=== PATIENT | female | born 1950 | race African-American/Black ===

== ENCOUNTER 2017-02-12 17:59 | Emergency (ER) | payer MEDICARE, MEDICAID ==
--- NOTE | 2017-02-12 18:52 | UC ---
Back Pain HPI - HPI Summary HPI Summary: 1 WEEK OF COUGHING AND SOB. SUBJECTIVE FEVERS. IS C/O LEFT LOW BACK PAIN. WORSE WITH COUGH AND FLEXION AT BACK. SAW PCP AND HAD CXR. NEG PER PT. IS REQUESTING A REPEAT. IS ON DAY 5 OF LEVAQUIN. HAS FLEXERIL AND TRAMADOL ALREADY. TRAMADOL NOT HELPING. - History of Current Complaint Chief Complaint: UCBackPain Stated Complaint: BACK PAIN Time Seen by Provider: 02/12/17 18:44 Hx Obtained From: Patient, Family/Wreath Maker - GRANDDAUGHTERS Onset/Duration: Gradual Onset, Lasting Days, Still Present Timing: Constant Severity Initially: Moderate Severity Currently: Moderate Pain Intensity: 10 - 10/10 WITH MVMT Pain Scale Used: 0-10 Numeric Back Pain: Is Discrete @ - LEFT LOW BACK Aggravating: Bending Alleviating: Rest Associated Signs And Symptoms: Positive: Fever - Allergies/Home Medications Allergies/Adverse Reactions: Allergies Allergy/AdvReac Type Severity Reaction Status Date / Time Aspirin Allergy Intermediate Nausea And Verified 07/14/16 08:25 [From Aspirin Compound] Vomiting Caffeine Allergy Intermediate Nausea And Verified 07/14/16 08:25 [From Aspirin Compound] Vomiting Phenacetin Allergy Intermediate Nausea And Verified 07/14/16 08:25 [From Aspirin Compound] Vomiting PMH/Surg Hx/FS Hx/Imm Hx Respiratory History Of: Reports: Asthma Cancer History Of: Reports: Breast Cancer - Surgical History Surgical History: Yes Surgery Procedure, Year, and Place: TUBAL STERILIZATION 1975. LEFT MASTECTOMY 2012 - Family History Known Family History: Negative: Hypertension - Social History Alcohol Use: Occasionally Substance Use Type: None Smoking Status (MU): Former Smoker When Did the Patient Quit Smoking/Using Tobacco: 2016 Review of Systems Constitutional: Negative Respiratory: Shortness Of Breath, Cough Cardiovascular: Negative Gastrointestinal: Negative All Other Systems Reviewed And Are Negative: Yes Physical Exam Triage Information Reviewed: Yes Appearance: Well-Appearing, No Pain Distress, Well-Nourished Vital Signs: Initial Vital Signs Temp 97 F 02/12/17 18:03 Pulse 99 02/12/17 18:03 Resp 20 02/12/17 18:03 BP 117/79 02/12/17 18:03 Pulse Ox 100 02/12/17 18:03 Vital Signs Reviewed: Yes Eyes: Positive: Conjunctiva Clear ENT: Positive: Hearing grossly normal Neck: Positive: Supple, Nontender, No Lymphadenopathy Respiratory: Positive: No respiratory distress, No accessory muscle use, Decreased breath sounds, Wheezing - LEFT SIDED INTERMITTENT EXPIRATORY WHEEZE Cardiovascular Exam: Normal Abdomen Description: Positive: Soft Musculoskeletal: Positive: No Edema Neurological: Positive: Alert Psychological: Positive: Normal Response To Family, Age Appropriate Behavior Skin: Negative: rashes Diagnostics - Radiology CXR Xray Interpretation: No Acute Changes Radiology Interpretation Completed By: Radiologist Back Pain Course/Dx - Differential Dx/Diagnosis Provider Diagnoses: 1. ACUTE BRONCHITIS. 2. LOW BACK STRAIN Discharge - Discharge Plan Condition: Stable Disposition: HOME Prescriptions: Naproxen [Naproxen EC] 500 mg PO BID PRN #30 tab PRN Reason: Pain guaiFENesin/CODIEN 100MG-10MG* [Robitussin AC 100Mg-10Mg*] 5 - 10 ml PO Q6H PRN #150 ml MDD 40 ml PRN Reason: Cough predniSONE TAB* [Deltasone TAB*] 50 mg PO DAILY #4 tab Patient Education Materials: Acute Bronchitis (ED), COPD (Chronic Obstructive Pulmonary Disease) (ED), Low Back Strain (ED) Referrals: Mae Alejandro MD [Primary Care Provider] - 1 Week Additional Instructions: CHEST XRAY UNREMARKABLE. YOU MAY HAVE COPD AN UNDERLYING LUNG CONDITION WHICH MAKES YOU MORE SUSCEPTIBLE TO INFECTION. DISCUSS THIS WITH YOUR PCP. CONTINUE YOUR LEVAQUIN TO COMPLETE COURSE. TAKE 2 PUFFS OF YOUR ALBUTEROL BEFORE BED. WILL TREAT FOR BRONCHITIS WITH STEROIDS TO HELP WITH OPENING UP YOUR AIRWAYS. YOUR BACK PAIN IS LIKELY MUSCULAR FROM ALL THE COUGHING. TAKE THE COUGH MED NEEDED. NAPROSYN SHOULD ALSO HELP. BE SURE TO GO THROUGH SLOW RANGE OF MOTION AND STRETCHING EXERCISES DAILY YOU ARE ABLE TO PREVENT YOUR BACK STIFFENING UP AND MAKING THE DISCOMFORT WORSE. FOLLOW-UP WITH YOUR PCP.
--- NOTE | 2017-02-12 19:37 | RAD ---
HISTORY: Back pain, cough COMPARISONS: None VIEWS: 2: Frontal dual-energy and lateral views of the chest. FINDINGS: CARDIOMEDIASTINAL SILHOUETTE: The cardiomediastinal silhouette is normal. KRISTIAN: The kristian are normal. PLEURA: The costophrenic angles are sharp. No pleural abnormalities are noted. LUNG PARENCHYMA: The lungs are clear. ABDOMEN: The upper abdomen is clear. There is no subphrenic gas. BONES AND SOFT TISSUES: No bone or soft tissue abnormalities are noted. OTHER: None. IMPRESSION: NO ACTIVE CARDIOPULMONARY DISEASE.
[2017-02-12] MEDS ORDERED: Naproxen TAB* 250 MG PO ONE (20:04)
[2017-02-12] MEDS ORDERED: predniSONE TAB* 20 MG PO ONE (20:04)
[2017-02-12] MEDS ORDERED: guaiFENesin/CODIEN 100MG-10MG* 5 ML UDC PO ONE (20:05)
[2017-02-12 20:47] VITALS: BP 142/73
== END 2017-02-12 20:36 | disposition home or self-care (01) ==
LOC: UCEAST 17:59
DX: S39.012A Strain of muscle, fascia and tendon of lower back, initial encounter (principal); X58.XXXA Exposure to other specified factors, initial encounter; Y93.9 Activity, unspecified; Y92.9 Unspecified place or not applicable; J45.909 Unspecified asthma, uncomplicated; Z85.3 Personal history of malignant neoplasm of breast; Z90.12 Acquired absence of left breast and nipple; Z88.6 Allergy status to analgesic agent; Z87.891 Personal history of nicotine dependence
CPT/HCPCS: 71020; 99213; A9270-GY; G0463; J7512

== ENCOUNTER 2017-10-12 06:02 | Day surgery (SDC) | payer MEDICARE, MEDICAID ==
--- NOTE | 2017-10-07 20:31 | HP ---
CC: Dr. Gracia; Dr. Alejandro * ADMITTING HISTORY AND PHYSICAL: DATE OF ADMISSION: 10/12/17 ADMITTING DIAGNOSES: 1. Right hydronephrosis. 2. 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 PLANNED PROCEDURE: Right retrograde, right ureteroscopy and pyeloscopy, biopsy of right ureteral mass and right stent insertion. SURGEON: Camilo Becerra MD HISTORY OF PRESENT ILLNESS: Debra Carvalho is a 67-year-old former chronic smoker, who had MRI done for evaluation for spinal stenosis which showed severe right hydronephrosis and right renal atrophy. She had a subsequent workup done at [facility] including a CT scan which revealed an enhancing mass in the upper right ureter with right hydronephrosis and in addition, other abnormalities including possible metastatic adenopathy and possible abnormality involving cervical lesion. PAST MEDICAL HISTORY: Significant for: 1. Asthma. 2. Spinal stenosis. 3. History of left breast cancer. PAST SURGICAL HISTORY: Significant for left breast lumpectomy in 2011 followed by radiation and a history of tubal ligation. MEDICATIONS ON ADMISSION: 1. Albuterol inhaler twice a day. 2. Fosamax once a week. 3. Aleve p.r.n. 4. CPAP daily. 5. Flexeril p.r.n. ALLERGIES AND INTOLERANCES: ASPIRIN. SOCIAL HISTORY: Smoking history, she is a former smoker who quit a year ago and has about a 40-pack year smoking history prior to that. PHYSICAL EXAMINATION GENERAL: Reveals a pleasant middle-aged -Ivorian lady. VITAL SIGNS: Blood pressure is 142/80, pulse 74 per minute and regular, oxygen saturation 98% on room air. LUNGS: Clear bilaterally. CARDIOVASCULAR EXAM: Regular rate and rhythm. S1, S2. ABDOMEN: Soft with mild right flank tenderness. IMPRESSION: A 67-year-old former smoker with right hydronephrosis, possible mass right ureter which appears to have been there for a while given the degree of renal cortical atrophy, and possible evidence of metastatic adenopathy. PLAN: For right retrograde, right ureteroscopy, pyeloscopy, biopsy of ureteral mass, and right stent insertion. [id number]/[facility] #: [id number] MTDD
[~2017-10-12 06:02] MED LIST: Buffered Lidocaine 0.9% SYRIN* 5 ML/SYR SYRINGE INTRADERM ONE; Famotidine IV* 10 MG/ML 2 ML (20 mg) IV ONE
[2017-10-12] MEDS ORDERED: Buffered Lidocaine 0.9% SYRIN* 5 ML/SYR SYRINGE ONE (06:47)
[2017-10-12] MEDS ORDERED: Famotidine IV* 10 MG/ML 2 ML (20 mg) ONE (06:47)
[2017-10-12] MEDS ORDERED: cefTRIAXone(*) 2 GM ADDV.VIAL IVPB ONE (06:47)
[2017-10-12] MEDS ORDERED: Iohexol 180 (CONTRAST) 10 ML SDV IV ONE ×3 (07:16→08:23)
[2017-10-12] MEDS ORDERED: fentaNYL* 50 MCG/ML 2 ML VIAL (100 MCG VIAL) ONE ×2 (07:42→08:59)
[2017-10-12] MEDS ORDERED: Midazolam* 1 MG/ML 2 ML VIAL (2 MG) ONE (07:42)
[2017-10-12] MEDS ORDERED: Lidocaine 2% PF * 5 ML VIAL ONE (07:43)
[2017-10-12] MEDS ORDERED: Propofol* 10 MG/ML 20 ML BTL IV PUSH ONE (07:43)
[2017-10-12] MEDS ORDERED: Dexamethasone IV* 4 MG/ML 1 ML (4 MG) ONE (07:43)
[2017-10-12] MEDS ORDERED: Ondansetron INJ* 2 MG/ML VIAL ONE (07:43)
[2017-10-12] MEDS ORDERED: Ketorolac INJ* 30 MG/ML 1 ML VIAL ONE (07:43)
[2017-10-12] MEDS ORDERED: DiMENhydriNATE IV* 50 MG/ML VIAL IV PUSH PRN (08:38)
[2017-10-12] MEDS ORDERED: oxyCODONE TAB* 5 MG TAB PO PRN (08:38)
[2017-10-12] MEDS ORDERED: Acetaminophen IV 1GM/100ML * 1,000 MG/100 ML VIAL IVPB ONE (08:38)
[2017-10-12] MEDS ORDERED: Naloxone* 0.4 MG/ML 1 ML VIAL IV PRN (08:38)
[2017-10-12] MEDS ORDERED: Furosemide IV* 10 MG/ML 2 ML VIAL (20 MG) ONE (08:59)
[2017-10-12] MEDS ORDERED: Acetaminophen IV 1GM/100ML * 100 ML ONE (09:33)
[2017-10-12] MEDS ORDERED: HYDROmorphone INJ* 2 MG/ML CARPUJECT SYRINGE ONE (09:42)
[2017-10-12] MEDS: HYDROmorphone INJ* 1 MG/ML CARPUJECT SYRINGE IV PRN ×3 (09:44→10:20)
--- NOTE | 2017-10-12 10:10 | RAD ---
INDICATION: Right ureteral stent insertion COMPARISONS: CT dated September 22, 2017 TECHNIQUE: Fluoroscopy was provided for a retrograde pyelogram and stent placement. Total fluoroscopy time is: 22 seconds FINDINGS: Spot images demonstrate a dilated right renal collecting system. A ureteral stent is noted. IMPRESSION: FLUOROSCOPY WAS PROVIDED FOR A RETROGRADE PYELOGRAM AND STENT PLACEMENT CPT II Codes: 6045F
[2017-10-12 11:21] VITALS: BP 150/75
--- NOTE | 2017-10-13 02:09 | OP ---
CC: Dr. Garcia; Dr. Alejandro * DATE OF OPERATION: 10/12/17 - FORMERLY [facility] DATE OF : 52 SURGEON: Camilo Becerra MD ANESTHESIOLOGIST: Dr. Samson. ANESTHESIA: General. PRE-OP DIAGNOSES: 1. Hematuria. 2. Right hydronephrosis. 3. Probable tumor right proximal ureter. POST-OP DIAGNOSES: 1. Hematuria. 2. Right hydronephrosis. 3. Probable tumor right proximal ureter. 4. Bladder lesions. OPERATIVE PROCEDURE: 1. Cystoscopy. 2. Right retrograde pyelogram. 3. Right ureteroscopy. 4. Right stent insertion. 5. Bladder biopsies and fulguration. COMPLICATIONS: None. STENT USED: A 6-Uruguayan 28-cm silicone stent, right ureter. INDICATIONS: Debra Carvalho is a 67-year-old chronic smoker, who was evaluated because of findings of severe right hydronephrosis with right renal cortical atrophy and possible mass in the right proximal ureter. OPERATIVE FINDINGS: 1. Two lesions posterior bladder wall with raised hyperemic mucosa (possible carcinoma in situ). 2. Severe right hydronephrosis with large filling defect in right proximal ureter with dilated tortuous proximal ureter. SPECIMENS: 1. Washings from right ureter. 2. Washings from right kidney. 3. Bladder biopsy. POSTOPERATIVE CONDITION: Stable. DESCRIPTION OF PROCEDURE: After induction of general anesthesia, the patient was placed in dorsal lithotomy position. Sequential compression devices were in place and functioning. Initial cystoscopy revealed an essentially normal- appearing bladder with two areas of hyperemic slightly irregular mucosa in the posterior wall on the left side. Excision biopsies were obtained and sent for histopathology and the areas were cauterized using the electrocautery. A guidewire was introduced into the right ureter. Retrograde pyelogram revealed a normal distal ureter. The proximal ureter was tortuous with a large filling defect noted consistent with transitional cell neoplasm. A 6-Uruguayan ureteroscope was introduced and advanced to the level of the lesion. There was quite a bit of old collected bloody urine draining from the kidney, which made visualization impaired. Washings were obtained from the ureter and from the kidney and sent for cytology. A 6-Uruguayan 28-cm silicone stent was introduced and positioned under fluoroscopy with good proximal and distal positioning obtained. If the cytology is not positive for transitional cell neoplasm, then I would consider sending her back for a repeat ureteroscopy once the kidney has been adequately drained with the stents in place for a week or two. The patient tolerated the procedure satisfactorily and was transferred back to recovery area in stable condition. [id number]/[facility] #: [id number] LARA
== END 2017-10-12 11:22 | disposition home or self-care (01) ==
LOC: OR 06:02
PROVIDERS: ATTEND Urology
DX: N13.1 Hydronephrosis with ureteral stricture, not elsewhere classified (principal); R31.9 Hematuria, unspecified; Z87.891 Personal history of nicotine dependence; Z85.3 Personal history of malignant neoplasm of breast; M48.00 Spinal stenosis, site unspecified; J45.909 Unspecified asthma, uncomplicated; G47.33 Obstructive sleep apnea (adult) (pediatric)
CPT/HCPCS: 74420; 88112; 88305; J0696; J1100; J1170; J1885; J1940; J2250; J2405; J2704; J3010

== ENCOUNTER 2018-12-28 08:08 | Emergency (ER) | payer MEDICARE, MEDICAID ==
--- NOTE | 2018-12-28 08:56 | UC ---
Lower Extremity/Ankle HPI - HPI Summary HPI Summary: 68 you female with complaint of pain and discoloration of left lower leg. Pain in calf is 9/10. No shortness of breath. Nurse's note: left leg, fell and fractured kneecap last tuesday, has a brace . Starting Tuesday night noticed back of leg is turning black. is painful at top of calf. no HX of DVT. no blood thinners . pt med list unavailable will call [facility] when open Vital signs: BP 149/71. - History of Current Complaint Chief Complaint: UCLowerExtremity Stated Complaint: LT LEG DISCOLORATION Time Seen by Provider: 12/28/18 08:52 Pain Intensity: 8 - Allergies/Home Medications Allergies/Adverse Reactions: Allergies Allergy/AdvReac Type Severity Reaction Status Date / Time aspirin Allergy Intermediate nausea Verified 12/28/18 08:28 vomitting phenacetin Allergy Intermediate vomitting Verified 12/28/18 08:28 Home Medications: Home Medications Amlodipine Besylate [Amlodipine 2.5 mg tab] 2.5 mg PO DAILY 12/28/18 [History Confirmed 12/28/18] Atorvastatin* [Lipitor*] 10 mg PO 1700 12/28/18 [History Confirmed 12/28/18] Fluticasone/Vilanterol MDI(NF) [Breo Ellipta MDI (NF)] 1 puff INH DAILY [History Confirmed 12/28/18] Letrozole 2.5 mg PO DAILY WITH MEAL 12/28/18 [History Confirmed 12/28/18] traMADol TAB* [Ultram*] 50 mg PO DAILY WITH MEAL 12/28/18 [History Confirmed 08/07] PMH/Surg Hx/FS Hx/Imm Hx - Surgical History Surgical History: Yes Surgery Procedure, Year, and Place: TUBAL STERILIZATION 1975. LEFT MASTECTOMY 2012. CATARACTS BILAT 2016. right kideney removed - Family History Known Family History: Negative: Hypertension - Social History Alcohol Use: Occasionally Substance Use Type: None Smoking Status (MU): Former Smoker Amount Used/How Often: SMOKED 40+ Have You Smoked in the Last Year: No When Did the Patient Quit Smoking/Using Tobacco: 2015 Review of Systems All Other Systems Reviewed And Are Negative: Yes Constitutional: Positive: Negative Skin: Positive: Negative Respiratory: Positive: Negative. Negative: Shortness Of Breath Cardiovascular: Positive: Negative. Negative: Palpitations Gastrointestinal: Positive: Negative. Negative: Abdominal Pain Genitourinary: Positive: Negative Musculoskeletal: Positive: Calf Tenderness - left, Edema - left, Other: - pain with ambulation Is Patient Immunocompromised?: No Physical Exam - Summary Physical Exam Summary: Appearance: The patient is well-appearing, is in no pain or distress, and is well-nourished. Eyes: Conjunctiva are clear. Pupils are equal and reactive to light and accommodation. Extra ocular muscle movement is intact. ENT: The hearing is grossly normal, the pharynx is normal, and the TMs are normal. There is no muffled or hoarse voice. No stridor. Neck: The neck is supple and there is no lymphadenopathy. Respiratory: The chest is nontender to palpation and without crepitus. The lungs are clear, there are normal breath sounds, and there is no respiratory distress. No wheezes, rales or rhonchi. Cardiovascular: Heart sounds reveal a regular rate and rhythm. There are no clicks, rubs or murmurs. There are no carotid bruits or thrills. Circulation is grossly intact. Abdomen: The abdomen is soft and nontender. There is no organomegaly. Bowel sounds are present and within normal limits. No point tenderness at McBurneys point. Musculoskeletal: The patient moves all extremities. Walks with difficulty. Tender left patella and a swollen left calf. The right calf is approximately 14 inches and the left calf is 14.5. There is a negative Homans sign. Neurological: The patient is alert. Motor and sensory are examination grossly intact. Speech is normal. Psychological: The patient displays age appropriate behavior Skin: Negative for rashes. Vital Signs: Initial Vital Signs Temp 98.0 F 12/28/18 08:20 Pulse 71 12/28/18 08:20 Resp 18 12/28/18 08:20 BP 149/71 12/28/18 08:20 Pulse Ox 95 12/28/18 08:20 Lower Extremity Course/Dx - Course Course Of Treatment: 68 you female with complaint of pain and discoloration of left lower leg. Pain in calf is 9/10. No shortness of breath. Patients vital signs are within normal limits unless noted. BP: 149/71. PAST MEDICAL HISTORY includes HTN, COPD, asthma, elevated cholesterol. Physical examination shows a tender left patella and a swollen left calf. The right calf is approximately 14 inches and the left calf is 14.5. There is a negative Homans sign. X-ray of the knee shows no fracture of the patella. There is some calcification of the tendon going over the patella. Ultrasound shows no deep vein thrombosis of the left lower extremity. My diagnosis is left patellar injury and left tib-fib, contusion from a fall. MEDICATIONS REVIEWED. HYPERTENSION STATUS REVIEWED. Patient is on amlodipine. - Differential Dx/Diagnosis Differential Diagnosis/HQI/PQRI: Contusion, Fracture (Closed), Other - DVT Provider Diagnosis: Patellar contusion, Contusion of lower leg, left Discharge - Sign-Out/Discharge Documenting (check all that apply): Patient Departure All imaging exams completed and their final reports reviewed: Yes - Discharge Plan Condition: Stable Disposition: HOME Patient Education Materials: Patellar Tendinitis (ED), Contusion in Adults (ED) Referrals: Mae Alejandro MD [Primary Care Provider] - Additional Instructions: WE DISCUSSED: PLEASE SEEK CARE AT THE EMERGENCY DEPARTMENT IF SYMPTOMS WORSEN OR IF NEW SYMPTOMS DEVELOP. FOLLOW UP WITH YOUR PRIMARY CARE PHYSICIAN IF CONDITION CONTINUES BEYOND 3 DAYS WITHOUT IMPROVEMENT. We are open from 7 a.m. to 10 p.m. Call us with any questions or concerns. YOUR DIAGNOSIS IS: INJURY TO SOFT TISSUE AND BONES AROUND YOUR LEFT KNEE AND LOWER LEG. No broken bones or blood clot scene. OTHER INSTRUCTIONS: REST, ELEVATE, WARM HEAT IN MORNING, ICE TO AREA FOR SHARP PAIN. Hypertension Discharge Instructions: Your blood pressure reading today was 149/71, indicating HYPERTENSION. Follow- up with your primary care provider within 4 weeks for blood pressure check and appropriate recommendations and treatment, as needed. For pain: Ibuprofen (Motrin and other brand names) 400 mg PLUS acetaminophen ( Tylenol and other brand names) 500mg - 1000mg every 8 hours. Maximum is 3 doses a day. If this dosage is required for more than 5 days, you should re-check with your doctor. The combination of these two [id number] medications can be more effective than each one taken alone. Please check with the pharmacist if you have questions about your allergies to these medications. - Billing Disposition and Condition Condition: STABLE Disposition: Home
[2018-12-28 10:37] VITALS: BP 146/72
== END 2018-12-28 10:35 | disposition home or self-care (01) ==
LOC: UCEAST 08:08
DX: S80.02XA Contusion of left knee, initial encounter (principal); S80.12XA Contusion of left lower leg, initial encounter; W19.XXXA Unspecified fall, initial encounter; Y92.9 Unspecified place or not applicable; I10 Essential (primary) hypertension; J44.9 Chronic obstructive pulmonary disease, unspecified; E78.5 Hyperlipidemia, unspecified; Z88.6 Allergy status to analgesic agent; Z87.891 Personal history of nicotine dependence
CPT/HCPCS: 99212; G0463

== ENCOUNTER 2024-04-25 10:30 | Inpatient (IN) ==
[2024-04-25] MEDS: Albuterol/Ipratropium NEB.SOL (2.5/0.5 MG) 3 ML NEB.SOLN INH ONE ×2 (11:58→15:22)
[2024-04-25] MEDS: Dexamethasone IV 4 MG/ML VIAL 1 ml VIAL IV SLOW PU ONE (12:30)
[2024-04-25 12:53] LABS: Hematocrit 43.4 % (35-45); Hemoglobin 14.2 g/dL (11.5-14.3); Mean Corpuscular Hgb Conc 32.6 g/dL (31-36); Red Blood Count 4.72 10^6/uL (3.63-4.92); Red Cell Distribution Width 14.9 % (12-17); White Blood Count 8.7 10^3/uL (3.8-11.8)
[2024-04-25 12:55] LABS: INR 0.96 (0.83-1.13)
[2024-04-25 13:17] LABS: ABS Basophils 0.1 10^3/uL (0.0-0.1); ABS Eosinophils 0.2 10^3/uL (0.0-0.5); ABS Lymphocytes 2.4 10^3/uL (1.0-4.8); ABS Monocytes 0.8 10^3/uL (0.0-0.9); ABS Neutrophils 5.1 10^3/uL (1.5-7.6); Lymphocyte % 28.1 %; Mean Platelet Volume 9.6 fL (7.5-11.2); Nucleated Red Blood Cells % 0.1 %/100WBC (0.0-0.8); Platelet Count 175 10^3/uL (150-450)
[2024-04-25 13:44] LABS: Albumin 3.9 g/dL (3.2-5.2); Albumin/Globulin Ratio 1.1 (1-3); C Reactive Protein 30.45 mg/L (<8.01); Calcium 9.5 mg/dL (8.6-10.3); Creatinine, Serum 0.85 mg/dL (0.51-0.95); Globulin 3.5 g/dL (2-4); Potassium 4.5 mmol/L (3.5-5.0); Total Bilirubin 0.4 mg/dL (0.2-1.0); Total Protein 7.4 g/dL (6.4-8.9); eGFR CKD-EPI 72.3 (>60)
[2024-04-25 14:02] LABS: High Sensitivity Troponin 1 Hr 16 pg/mL (<15)
[2024-04-25] MEDS: cefTRIAXone 1 gm/50 mL D5W 1 GM/50 ML BAG IV ONE (15:07)
[2024-04-25] MEDS: Azithromycin 500 mg/250 ml NS 500 MG/250 ML BAG IVPB ONE (15:38)
[2024-04-25] MEDS ORDERED: Albuterol HFA INHALER 8 gm MDI INH PRN (19:06)
[2024-04-25] MEDS: Albuterol/Ipratropium NEB.SOL (2.5/0.5 MG) 3 ML NEB.SOLN INH SCH (19:30)
[2024-04-25] MEDS: Tiotropium Brom/Olodaterol MDI (ACUTE) INH SCH (22:18)
[2024-04-25] MEDS: Enoxaparin 40 MG/0.4 ML SYR SUBCUT SCH (22:43)
[2024-04-26 00:32] LABS: Venous Bicarbonate HCO3 23.9 mmol/L (24-28)
[2024-04-26 07:01] LABS: Creatinine, Serum 0.71 mg/dL (0.51-0.95); Magnesium 1.7 mg/dL (1.9-2.7); Phosphorus 4.1 mg/dL (2.5-5.0); Potassium 4.5 mmol/L (3.5-5.0); eGFR CKD-EPI 89.7 (>60)
[2024-04-26 07:29] LABS: Hematocrit 40.4 % (35-45); Hemoglobin 13.3 g/dL (11.5-14.3); Mean Corpuscular Hemoglobin 30.4 pg (27-33); Mean Corpuscular Volume 92.2 fL (80-97); Red Blood Count 4.38 10^6/uL (3.63-4.92); White Blood Count 11.7 10^3/uL (3.8-11.8)
[2024-04-26 07:55] LABS: ABS Lymphocytes 1.1 10^3/uL (1.0-4.8); ABS Monocytes 0.5 10^3/uL (0.0-0.9); ABS Neutrophils 10.1 10^3/uL (1.5-7.6); Giant Platelets Present; Lymphocyte % 9.6 %; Mean Platelet Volume 10.9 fL (7.5-11.2); Platelet Count 146 10^3/uL (150-450)
[2024-04-26] MEDS: cefTRIAXone 1 gm/50 mL D5W 1 GM/50 ML BAG IV SCH (15:07)
[2024-04-26] MEDS: Azithromycin 500 mg/250 ml NS 500 MG/250 ML BAG IVPB SCH (15:55)
[2024-04-26] MEDS: Albuterol 2.5mg/3 ml (0.083%) NEB.SOLN INH SCH (23:29)
[2024-04-27] MEDS: Albuterol 2.5mg/3 ml (0.083%) NEB.SOLN INH SCH (07:25)
[2024-04-27 07:28] LABS: Calcium 8.9 mg/dL (8.6-10.3); Creatinine, Serum 0.75 mg/dL (0.51-0.95); Magnesium 1.9 mg/dL (1.9-2.7); Potassium 4.6 mmol/L (3.5-5.0)
[2024-04-27 07:33] LABS: Hematocrit 39.8 % (35-45); Hemoglobin 13.3 g/dL (11.5-14.3); Mean Corpuscular Hemoglobin 30.6 pg (27-33); Mean Corpuscular Hgb Conc 33.3 g/dL (31-36); Mean Corpuscular Volume 91.7 fL (80-97); Red Blood Count 4.34 10^6/uL (3.63-4.92); Red Cell Distribution Width 15.2 % (12-17); White Blood Count 17.3 10^3/uL (3.8-11.8)
[2024-04-27 08:07] LABS: ABS Lymphocytes 2.3 10^3/uL (1.0-4.8); ABS Monocytes 1.1 10^3/uL (0.0-0.9); ABS Neutrophils 13.9 10^3/uL (1.5-7.6); ABS Nucleated RBC 0.04 10^3/ul; Lymphocyte % 13.3 %; Mean Platelet Volume 9.7 fL (7.5-11.2); Nucleated Red Blood Cells % 0.2 %/100WBC (0.0-0.8); Platelet Count 156 10^3/uL (150-450)
[2024-04-27 09:31] VITALS: BP 137/74
[2024-04-27] MEDS: Sulfur Hexaflouride MICROSPHR 25 MG VIAL IV ONE (14:54)
== END 2024-04-27 15:30 | disposition home or self-care (01) | DRG 193 ==
LOC: EDHOLD 10:30 → ED 10:30 → SUATTDRO 16:12 → MEDTELE 20:42
PROVIDERS: ADMIT Internal Medicine; ATTEND Student in an Organized Health Care Education/Training Program

== ENCOUNTER 2024-10-09 19:32 | Inpatient (IN) ==
[2024-10-09 20:32] LABS: Hematocrit 36.3 % (35-45); Hemoglobin 12.1 g/dL (11.5-14.3); Mean Corpuscular Hemoglobin 31.8 pg (27-33); Mean Corpuscular Hgb Conc 33.4 g/dL (31-36); Mean Corpuscular Volume 95.2 fL (80-97); Red Blood Count 3.82 10^6/uL (3.63-4.92); Red Cell Distribution Width 14.4 % (12-17); White Blood Count 10.6 10^3/uL (3.8-11.8)
[2024-10-09] MEDS: Albuterol/Ipratropium NEB.SOL (2.5/0.5 MG) 3 ML NEB.SOLN INH ONE (20:32)
[2024-10-09 20:41] LABS: ALT 29 U/L (7-52); Albumin 4.2 g/dL (3.5-5.7); Albumin/Globulin Ratio 1.2 (1-3); Alcohol, S 71 mg/dL (<13); Alkaline Phosphatase 77 U/L (35-149); Blood Urea Nitrogen 12 mg/dL (6-24); C Reactive Protein 27.01 mg/L (<8.01); CO2 Carbon Dioxide 28 mmol/L (22-32); Calcium 9.4 mg/dL (8.6-10.3); Chloride 100 mmol/L (101-111); Creatinine, Serum 0.98 mg/dL (0.51-0.95); Globulin 3.4 g/dL (2-4); Glucose 109 mg/dL (70-100); Sodium 136 mmol/L (135-145); Total Bilirubin 0.5 mg/dL (0.2-1.0); Total Protein 7.6 g/dL (6.4-8.9); eGFR CKD-EPI 60.9 (>60)
[2024-10-09 20:50] LABS: Anion Gap 8 mmol/L (2-16)
[2024-10-09 20:53] LABS: High Sens Troponin Baseline 12 pg/mL (<15)
[2024-10-09 20:55] LABS: ABS Basophils 0.1 10^3/uL (0.0-0.1); ABS Eosinophils 0.1 10^3/uL (0.0-0.5); ABS Neutrophils 7.4 10^3/uL (1.5-7.6); ABS Nucleated RBC 0.01 10^3/ul; Lymphocyte % 18.8 %; Nucleated Red Blood Cells % 0.1 %/100WBC (0.0-0.8); Platelet Count Platelets clumped. 10^3/uL (150-450)
[2024-10-09] MEDS: Piperacillin/Tazobac 3.375 BAG 3.375 GM/100 ML BAG IV ONE (21:26)
[2024-10-09] MEDS: Azithromycin 500 mg/250 ml NS 500 MG/250 ML BAG IVPB ONE (21:55)
[2024-10-09 22:00] LABS: Potassium Redraw 4.2 mmol/L (3.5-5.0)
[2024-10-09] MEDS: Enoxaparin 40 MG/0.4 ML SYR SUBCUT SCH (23:43)
[2024-10-09 23:45] LABS: Urine Appearance Clear; Urine Bilirubin Negative (Negative); Urine Blood Negative (Negative); Urine Color Colorless; Urine Glucose Negative (Negative); Urine Ketones Negative (Negative); Urine Nitrite Negative (Negative); Urine Protein 1+ (>=30 mg/dL) (Negative); Urine Specific Gravity 1.007 (1.002-1.030); Urine Urobilinogen Negative (Negative)
[2024-10-09 23:46] LABS: Urine Bacteria Absent /HPF (Absent); Urine Red Blood Cell Trace(0-2/hpf) /HPF (0-Trace); Urine Squamous Epithelial Cell Present /HPF (Absent); Urine White Blood Cell Absent /HPF (0-Trace)
[2024-10-09] MEDS ORDERED: Sulfur Hexaflouride MICROSPHR 25 MG VIAL IV PRN (23:54)
[2024-10-09] MEDS ORDERED: Dextrose 50% Syringe 50 ml 25 GM/50 ML SYRINGE IV PUSH PRN (23:59)
[2024-10-10] MEDS ORDERED: cefTRIAXone 1 gm/50 mL D5W 1 GM/50 ML BAG IV SCH (01:00)
[2024-10-10] MEDS: cefTRIAXone 1 gm/50 mL D5W 1 GM/50 ML BAG IV SCH (01:45)
[2024-10-10] MEDS ORDERED: cefTRIAXone 1 gm/50 mL D5W 1 GM/50 ML BAG IV ONE (02:00)
[2024-10-10] MEDS: Iodixanol 320 (CONTRAST) 100 ML SDV IV ONE (03:29)
[2024-10-10 05:04] LABS: ABS Basophils 0.1 10^3/uL (0.0-0.1); ABS Eosinophils 0.1 10^3/uL (0.0-0.5); ABS Lymphocytes 2.1 10^3/uL (1.0-4.8); ABS Monocytes 0.9 10^3/uL (0.0-0.9); ABS Neutrophils 6.7 10^3/uL (1.5-7.6); Eosinophil % 0.8 %; Hematocrit 33.2 % (35-45); Hemoglobin 11.1 g/dL (11.5-14.3); Lymphocyte % 21.4 %; Mean Corpuscular Hemoglobin 31.4 pg (27-33); Mean Corpuscular Hgb Conc 33.4 g/dL (31-36); Mean Corpuscular Volume 94.1 fL (80-97); Mean Platelet Volume 9.4 fL (7.5-11.2); Platelet Count 159 10^3/uL (150-450); Red Blood Count 3.53 10^6/uL (3.63-4.92); Red Cell Distribution Width 14.2 % (12-17); White Blood Count 9.8 10^3/uL (3.8-11.8)
[2024-10-10 05:48] LABS: Calcium 8.4 mg/dL (8.6-10.3); Creatinine, Serum 1.07 mg/dL (0.51-0.95); Magnesium 1.9 mg/dL (1.9-2.7); Potassium 4.5 mmol/L (3.5-5.0); eGFR CKD-EPI 54.8 (>60)
[2024-10-10] MEDS: Tiotropium Brom/Olodaterol MDI (ACUTE) INH SCH (07:13)
[2024-10-10] MEDS: Azithromycin 500 mg/250 ml NS 500 MG/250 ML BAG IVPB SCH (20:52)
[2024-10-11 03:48] LABS: ABS Basophils 0.1 10^3/uL (0.0-0.1); ABS Eosinophils 0.3 10^3/uL (0.0-0.5); ABS Lymphocytes 1.5 10^3/uL (1.0-4.8); ABS Monocytes 1.1 10^3/uL (0.0-0.9); ABS Neutrophils 8.2 10^3/uL (1.5-7.6); ABS Nucleated RBC 0.01 10^3/ul; Eosinophil % 2.5 %; Hematocrit 34.9 % (35-45); Hemoglobin 11.5 g/dL (11.5-14.3); Lymphocyte % 13.4 %; Mean Corpuscular Hemoglobin 31.3 pg (27-33); Mean Platelet Volume 9.8 fL (7.5-11.2); Nucleated Red Blood Cells % 0.1 %/100WBC (0.0-0.8); Platelet Count 143 10^3/uL (150-450); Red Blood Count 3.67 10^6/uL (3.63-4.92); Red Cell Distribution Width 14.6 % (12-17); White Blood Count 11.1 10^3/uL (3.8-11.8)
[2024-10-11 06:03] LABS: Creatinine, Serum 0.84 mg/dL (0.51-0.95); Magnesium 1.9 mg/dL (1.9-2.7); Phosphorus 4.5 mg/dL (2.5-5.0); Potassium 4.5 mmol/L (3.5-5.0); eGFR CKD-EPI 73.3 (>60)
[2024-10-11] MEDS: Ondansetron 4 mg VIAL 2 MG/ML 2 ml VIAL IV PRN (06:18)
[2024-10-11] MEDS: Morphine 2 MG/ML SYRINGE IV ONE (06:23)
[2024-10-11] MEDS: Albuterol 2.5mg/3 ml (0.083%) NEB.SOLN INH PRN (09:53)
[2024-10-11] MEDS: Morphine 2 MG/ML SYRINGE ONE (15:06)
[2024-10-11] MEDS: LORazepam 2 mg VIAL 1 ml ONE (16:34)
[2024-10-11] MEDS: Dexamethasone IV 4 MG/ML VIAL 1 ml VIAL IV SLOW PU SCH (17:07)
[2024-10-11] MEDS ORDERED: Morphine 2 MG/ML SYRINGE IV PRN (19:37)
[2024-10-11] MEDS: Lidocaine PATCH 5% PATCH TRANSDERM SCH (19:51)
[2024-10-12 04:53] LABS: Hematocrit 33.8 % (35-45); Hemoglobin 11.2 g/dL (11.5-14.3); Mean Corpuscular Hemoglobin 31.3 pg (27-33); Mean Corpuscular Hgb Conc 33.1 g/dL (31-36); Mean Corpuscular Volume 94.5 fL (80-97); Red Blood Count 3.57 10^6/uL (3.63-4.92); Red Cell Distribution Width 13.6 % (12-17); White Blood Count 9.9 10^3/uL (3.8-11.8)
[2024-10-12 05:16] LABS: Calcium 8.9 mg/dL (8.6-10.3); Creatinine, Serum 0.75 mg/dL (0.51-0.95); Magnesium 1.8 mg/dL (1.9-2.7); Potassium 4.8 mmol/L (3.5-5.0)
[2024-10-12] MEDS: Magnesium Sulfate 2 gm BAG 2 GM/50 ML BAG IVPB ONE (06:00)
[2024-10-12 06:01] LABS: ABS Lymphocytes 0.6 10^3/uL (1.0-4.8); ABS Monocytes 0.3 10^3/uL (0.0-0.9); Large Platelets Present; Mean Platelet Volume 10.2 fL (7.5-11.2); Platelet Count 132 10^3/uL (150-450)
[2024-10-12 06:06] LABS: Phosphorus 4.1 mg/dL (2.5-5.0)
[2024-10-12] MEDS ORDERED: Lidocaine PATCH 4% TOPICAL SCH (10:00)
[2024-10-12] MEDS: Lidocaine PATCH 5% PATCH TRANSDERM SCH (10:52)
[2024-10-13 04:25] LABS: ABS Basophils 0.1 10^3/uL (0.0-0.1); ABS Lymphocytes 0.9 10^3/uL (1.0-4.8); ABS Monocytes 1.2 10^3/uL (0.0-0.9); ABS Neutrophils 13.3 10^3/uL (1.5-7.6); ABS Nucleated RBC 0.02 10^3/ul; Hematocrit 31.6 % (35-45); Hemoglobin 10.5 g/dL (11.5-14.3); Lymphocyte % 5.9 %; Mean Corpuscular Hemoglobin 31.1 pg (27-33); Mean Corpuscular Hgb Conc 33.3 g/dL (31-36); Mean Corpuscular Volume 93.4 fL (80-97); Mean Platelet Volume 9.8 fL (7.5-11.2); Nucleated Red Blood Cells % 0.1 %/100WBC (0.0-0.8); Platelet Count 139 10^3/uL (150-450); Red Blood Count 3.39 10^6/uL (3.63-4.92); Red Cell Distribution Width 13.8 % (12-17); White Blood Count 15.5 10^3/uL (3.8-11.8)
[2024-10-13 05:13] LABS: Calcium 8.8 mg/dL (8.6-10.3); Creatinine, Serum 0.93 mg/dL (0.51-0.95); Magnesium 2.1 mg/dL (1.9-2.7); eGFR CKD-EPI 64.9 (>60)
[2024-10-13] MEDS: Magnesium Sulfate 2 gm BAG 2 GM/50 ML BAG IVPB ONE (17:13)
[2024-10-13] MEDS: Enoxaparin 40 MG/0.4 ML SYR SUBCUT SCH (22:04)
[2024-10-14 08:01] LABS: ABS Basophils 0.1 10^3/uL (0.0-0.1); ABS Lymphocytes 1.7 10^3/uL (1.0-4.8); ABS Monocytes 1.4 10^3/uL (0.0-0.9); ABS Neutrophils 11.7 10^3/uL (1.5-7.6); ABS Nucleated RBC 0.01 10^3/ul; Eosinophil % 0.3 %; Hematocrit 32.7 % (35-45); Hemoglobin 10.9 g/dL (11.5-14.3); Lymphocyte % 11.2 %; Mean Corpuscular Hemoglobin 30.9 pg (27-33); Mean Corpuscular Hgb Conc 33.2 g/dL (31-36); Mean Corpuscular Volume 93.1 fL (80-97); Nucleated Red Blood Cells % 0.1 %/100WBC (0.0-0.8); Platelet Count 164 10^3/uL (150-450); Red Blood Count 3.52 10^6/uL (3.63-4.92); Red Cell Distribution Width 13.8 % (12-17); White Blood Count 14.9 10^3/uL (3.8-11.8)
[2024-10-14 08:37] LABS: Blood Urea Nitrogen 25 mg/dL (6-24); CO2 Carbon Dioxide 33 mmol/L (22-32); Calcium 8.6 mg/dL (8.6-10.3); Chloride 99 mmol/L (101-111); Creatinine, Serum 0.82 mg/dL (0.51-0.95); Glucose 100 mg/dL (70-100); Magnesium 2.2 mg/dL (1.9-2.7); Sodium 138 mmol/L (135-145); eGFR CKD-EPI 75.5 (>60)
[2024-10-14 09:23] LABS: Anion Gap 6 mmol/L (2-16)
[2024-10-14 09:23] LABS: Potassium, Whole Blood 4.7 mmol/L (3.4-4.5)
[2024-10-15 06:49] LABS: ABS Basophils 0.1 10^3/uL (0.0-0.1); ABS Lymphocytes 1.8 10^3/uL (1.0-4.8); ABS Monocytes 1.3 10^3/uL (0.0-0.9); ABS Neutrophils 10.7 10^3/uL (1.5-7.6); ABS Nucleated RBC 0.01 10^3/ul; Eosinophil % 0.2 %; Hematocrit 34.2 % (35-45); Hemoglobin 11.2 g/dL (11.5-14.3); Lymphocyte % 13.1 %; Mean Corpuscular Hemoglobin 30.7 pg (27-33); Mean Corpuscular Hgb Conc 32.9 g/dL (31-36); Mean Corpuscular Volume 93.1 fL (80-97); Mean Platelet Volume 9.9 fL (7.5-11.2); Nucleated Red Blood Cells % 0.1 %/100WBC (0.0-0.8); Platelet Count 162 10^3/uL (150-450); Red Blood Count 3.67 10^6/uL (3.63-4.92); Red Cell Distribution Width 13.9 % (12-17); White Blood Count 13.9 10^3/uL (3.8-11.8)
[2024-10-15 06:56] LABS: Calcium 8.8 mg/dL (8.6-10.3); Creatinine, Serum 0.83 mg/dL (0.51-0.95); Magnesium 1.9 mg/dL (1.9-2.7); Potassium 4.6 mmol/L (3.5-5.0); eGFR CKD-EPI 74.4 (>60)
[2024-10-15] MEDS: Furosemide 20 mg/2 ml IV VIAL IV ONE (14:41)
[2024-10-16 06:01] LABS: Hematocrit 37.5 % (35-45); Hemoglobin 12.3 g/dL (11.5-14.3); Mean Corpuscular Hemoglobin 30.6 pg (27-33); Mean Corpuscular Hgb Conc 32.9 g/dL (31-36); Red Blood Count 4.03 10^6/uL (3.63-4.92); Red Cell Distribution Width 13.9 % (12-17); White Blood Count 15.3 10^3/uL (3.8-11.8)
[2024-10-16 06:09] LABS: Calcium 9.5 mg/dL (8.6-10.3); Creatinine, Serum 0.89 mg/dL (0.51-0.95); Magnesium 1.9 mg/dL (1.9-2.7); Potassium 4.2 mmol/L (3.5-5.0); eGFR CKD-EPI 68.4 (>60)
[2024-10-16 07:10] LABS: ABS Basophils 0.1 10^3/uL (0.0-0.1); ABS Lymphocytes 2.3 10^3/uL (1.0-4.8); ABS Monocytes 1.4 10^3/uL (0.0-0.9); ABS Neutrophils 11.5 10^3/uL (1.5-7.6); ABS Nucleated RBC 0.01 10^3/ul; Eosinophil % 0.2 %; Giant Platelets Present; Lymphocyte % 15.2 %; Mean Platelet Volume 10.9 fL (7.5-11.2); Nucleated Red Blood Cells % 0.1 %/100WBC (0.0-0.8); Platelet Count 165 10^3/uL (150-450)
[2024-10-16] MEDS: Magnesium Sulfate 2 gm BAG 2 GM/50 ML BAG IVPB ONE (09:41)
[2024-10-16] MEDS: Furosemide 20 mg/2 ml IV VIAL IV ONE (09:45)
[2024-10-16 14:19] VITALS: BP 119/64
== END 2024-10-16 16:00 | disposition home or self-care (01) | DRG 202 ==
LOC: ED 19:32 → SUATTDRO 23:27 → EDHOLD 23:27 → ICU 23:47 → MEDTELE 10-14 11:08
PROVIDERS: ADMIT Internal Medicine Critical Care Medicine; ATTEND Hospitalist

== ENCOUNTER 2024-10-27 20:31 | Inpatient (IN) ==
[2024-10-27] MEDS: Etomidate 20 mg/10 ml 2 MG/ML 10 ml VIAL IV ONE (20:36)
[2024-10-27] MEDS: Rocuronium 50 mg VIAL 10 mg/ml 5 ml VIAL (50 mg) IV ONE (20:37)
[2024-10-27] MEDS ORDERED: Propofol 10 mg/ml 100 ML BTL 1,000 MG/100 ML BTL ONE (20:42)
[2024-10-27] MEDS: Propofol 10 mg/ml 100 ML BTL 1,000 MG/100 ML BTL IV SCH (20:46)
[2024-10-27] MEDS ORDERED: Albuterol/Ipratropium NEB.SOL (2.5/0.5 MG) 3 ML NEB.SOLN ONE (20:51)
[2024-10-27] MEDS: Azithromycin 500 mg/250 ml NS 500 MG/250 ML BAG IVPB ONE (21:02)
[2024-10-27] MEDS: Albuterol/Ipratropium NEB.SOL (2.5/0.5 MG) 3 ML NEB.SOLN INH STA (21:12)
[2024-10-27 21:13] LABS: ABS Basophils 0.2 10^3/uL (0.0-0.1); ABS Eosinophils 0.3 10^3/uL (0.0-0.5); ABS Lymphocytes 4.9 10^3/uL (1.0-4.8); ABS Monocytes 1.5 10^3/uL (0.0-0.9); ABS Neutrophils 14.5 10^3/uL (1.5-7.6); ABS Nucleated RBC 0.03 10^3/ul; Eosinophil % 1.4 %; Hematocrit 43.5 % (35-45); Lymphocyte % 22.8 %; Mean Corpuscular Hemoglobin 30.6 pg (27-33); Mean Corpuscular Hgb Conc 32.1 g/dL (31-36); Mean Corpuscular Volume 95.2 fL (80-97); Mean Platelet Volume 9.1 fL (7.5-11.2); Nucleated Red Blood Cells % 0.1 %/100WBC (0.0-0.8); Platelet Count 202 10^3/uL (150-450); Red Blood Count 4.57 10^6/uL (3.63-4.92); Red Cell Distribution Width 14.8 % (12-17); White Blood Count 21.4 10^3/uL (3.8-11.8)
[2024-10-27 21:17] LABS: INR 0.96 (0.85-1.14)
[2024-10-27] MEDS: Albuterol/Ipratropium NEB.SOL (2.5/0.5 MG) 3 ML NEB.SOLN INH ONE (21:21)
[2024-10-27 21:22] LABS: Urine Appearance Clear; Urine Bilirubin Negative (Negative); Urine Blood 1+ (Negative); Urine Color Light-Yellow; Urine Glucose 1+ (>=70 mg/dL) (Negative); Urine Ketones Negative (Negative); Urine Nitrite Negative (Negative); Urine Protein 3+ (>=300 mg/dL) (Negative); Urine Specific Gravity 1.013 (1.002-1.030); Urine Urobilinogen Negative (Negative)
[2024-10-27 21:26] LABS: Albumin 4.4 g/dL (3.5-5.7); Albumin/Globulin Ratio 1.2 (1-3); C Reactive Protein 56.6 mg/L (<8.01); Calcium 9.9 mg/dL (8.6-10.3); Creatinine, Serum 0.99 mg/dL (0.51-0.95); Globulin 3.7 g/dL (2-4); Potassium 3.8 mmol/L (3.5-5.0); Total Bilirubin 0.4 mg/dL (0.2-1.0); Total Protein 8.1 g/dL (6.4-8.9); eGFR CKD-EPI 60.2 (>60)
[2024-10-27 21:36] LABS: Urine Bacteria Absent /HPF (Absent); Urine Red Blood Cell 1+(3-5/hpf) /HPF (0-Trace); Urine Squamous Epithelial Cell Present /HPF (Absent); Urine White Blood Cell Trace(0-5/hpf) /HPF (0-Trace)
[2024-10-27] MEDS: Cefepime 2 GM in Dextrose 2 GM/50 ML BAG IV ONE (21:53)
[2024-10-27 21:59] LABS: Urine Benzodiazepine Screen None Detected (None Detect); Urine Cannabinoids Screen Presumptive Positive (None Detect); Urine Opiates Screen None Detected (None Detect)
[2024-10-27] MEDS: Magnesium Sulfate 2 gm BAG 2 GM/50 ML BAG IVPB ONE (22:02)
[2024-10-27 22:05] LABS: PCO2 Arterial 54 mmHg (35-45); PO2 Arterial 94 mmHg (80-100)
[2024-10-27] MEDS ORDERED: Dextrose 50% Syringe 50 ml 25 GM/50 ML SYRINGE IV PUSH PRN (22:11)
[2024-10-27] MEDS: methylPREDNISolone SOD SUCC 125 mg 2 ML VIAL IV ONE (22:18)
[2024-10-27 22:23] LABS: High Sensitivity Troponin 1 Hr 30 pg/mL (<15)
[2024-10-27] MEDS: fentaNYL 100 mcg/2 ml 50 MCG/ML VIAL IV SLOW PU ONE (23:56)
[2024-10-28] MEDS: Enoxaparin 40 MG/0.4 ML SYR SUBCUT SCH (00:01)
[2024-10-28] MEDS: fentaNYL INFUSION 50 mcg/mL VL 2,500 MCG/50 ML VIAL IV SCH (00:17)
[2024-10-28] MEDS ORDERED: fentaNYL 100 mcg/2 ml 50 MCG/ML VIAL IV SLOW PU PRN (00:41)
[2024-10-28] MEDS ORDERED: Albuterol/Ipratropium NEB.SOL (2.5/0.5 MG) 3 ML NEB.SOLN INH PRN (00:42)
[2024-10-28] MEDS ORDERED: Albuterol 2.5mg/3 ml (0.083%) NEB.SOLN INH PRN (00:42)
[2024-10-28] MEDS: fentaNYL 100 mcg/2 ml 50 MCG/ML VIAL IV SLOW PU PRN (01:10)
[2024-10-28] MEDS: fentaNYL 100 mcg/2 ml 50 MCG/ML VIAL ONE (01:28)
[2024-10-28] MEDS: Chlorhexidine MOUTHWASH 0.12% 15 ML UDC TOPICAL SCH (01:29)
[2024-10-28] MEDS: Lactated Ringers 1000 ml BAG 1,000 ML IV SCH (04:12)
[2024-10-28] MEDS: Pantoprazole VIAL 40 MG VIAL IV SCH (05:44)
[2024-10-28 05:52] LABS: ABS Basophils 0.1 10^3/uL (0.0-0.1); ABS Lymphocytes 1.1 10^3/uL (1.0-4.8); ABS Monocytes 0.3 10^3/uL (0.0-0.9); ABS Neutrophils 16.3 10^3/uL (1.5-7.6); ABS Nucleated RBC 0.01 10^3/ul; Hematocrit 33.6 % (35-45); Hemoglobin 11.1 g/dL (11.5-14.3); Lymphocyte % 6.1 %; Mean Corpuscular Hemoglobin 30.4 pg (27-33); Mean Corpuscular Volume 92.1 fL (80-97); Mean Platelet Volume 9.3 fL (7.5-11.2); Nucleated Red Blood Cells % 0.1 %/100WBC (0.0-0.8); Platelet Count 191 10^3/uL (150-450); Red Blood Count 3.65 10^6/uL (3.63-4.92); Red Cell Distribution Width 14.6 % (12-17); White Blood Count 17.8 10^3/uL (3.8-11.8)
[2024-10-28] MEDS ORDERED: Vancomycin 1,000 MG in NS 0.9% 250 ml 250 ML IVPB ONE (06:04)
[2024-10-28] MEDS: Cefepime 2 GM in Dextrose 2 GM/50 ML BAG IV SCH (06:14)
[2024-10-28 06:28] LABS: Resp Rate 20
[2024-10-28 06:29] LABS: PCO2 Arterial 36 mmHg (35-45); PO2 Arterial 64 mmHg (80-100)
[2024-10-28 06:54] LABS: Albumin 3.3 g/dL (3.5-5.7); Albumin/Globulin Ratio 1.2 (1-3); Calcium 8.6 mg/dL (8.6-10.3); Creatinine, Serum 0.95 mg/dL (0.51-0.95); Globulin 2.8 g/dL (2-4); Magnesium 2.1 mg/dL (1.9-2.7); Phosphorus 2.4 mg/dL (2.5-5.0); Potassium 3.9 mmol/L (3.5-5.0); Total Bilirubin 0.6 mg/dL (0.2-1.0); Total Protein 6.1 g/dL (6.4-8.9); eGFR CKD-EPI 63.3 (>60)
[2024-10-28] MEDS ORDERED: Vancomycin per Pharmacy 1 EA NOTE FOLLOW UP SCH (07:00)
[2024-10-28] MEDS: Iohexol 350 (CONTRAST) 500 ML MDV IV ONE (07:03)
[2024-10-28] MEDS: Vancomycin 1,500 MG in NS 0.9% 250 ml 250 ML IVPB ONE (07:06)
[2024-10-28] MEDS: methylPREDNISolone SOD SUCC 40 mg/ml 1 ml VIAL IV SCH (08:57)
[2024-10-28] MEDS: HYDROmorphone 1 MG/1 ML SYRINGE IV PRN (11:35)
[2024-10-28 14:15] LABS: Calcium 8.7 mg/dL (8.6-10.3); Creatinine, Serum 0.95 mg/dL (0.51-0.95); Magnesium 2.1 mg/dL (1.9-2.7); Potassium 4.8 mmol/L (3.5-5.0); eGFR CKD-EPI 63.3 (>60)
[2024-10-28] MEDS: Vancomycin 750 MG in NS 0.9% 250 ML IVPB SCH (17:01)
[2024-10-28] MEDS: Azithromycin 500 mg/250 ml NS 500 MG/250 ML BAG IVPB SCH (21:02)
[2024-10-29 04:26] LABS: ABS Basophils 0.1 10^3/uL (0.0-0.1); ABS Lymphocytes 1.1 10^3/uL (1.0-4.8); ABS Monocytes 0.7 10^3/uL (0.0-0.9); ABS Neutrophils 19.8 10^3/uL (1.5-7.6); ABS Nucleated RBC 0.01 10^3/ul; Hematocrit 30.8 % (35-45); Hemoglobin 10.2 g/dL (11.5-14.3); Lymphocyte % 5.1 %; Mean Corpuscular Hemoglobin 30.6 pg (27-33); Mean Corpuscular Hgb Conc 33.1 g/dL (31-36); Mean Corpuscular Volume 92.2 fL (80-97); Mean Platelet Volume 9.4 fL (7.5-11.2); Platelet Count 182 10^3/uL (150-450); Red Blood Count 3.34 10^6/uL (3.63-4.92); Red Cell Distribution Width 14.6 % (12-17); White Blood Count 21.7 10^3/uL (3.8-11.8)
[2024-10-29 05:26] LABS: Albumin 3.3 g/dL (3.5-5.7); Albumin/Globulin Ratio 1.2 (1-3); Calcium 8.4 mg/dL (8.6-10.3); Creatinine, Serum 0.96 mg/dL (0.51-0.95); Globulin 2.7 g/dL (2-4); Magnesium 2.3 mg/dL (1.9-2.7); Phosphorus 3.9 mg/dL (2.5-5.0); Potassium 4.7 mmol/L (3.5-5.0); Total Bilirubin 0.4 mg/dL (0.2-1.0); eGFR CKD-EPI 62.5 (>60)
[2024-10-29] MEDS: Furosemide 40 mg/4 ml IV VIAL IV SLOW PU ONE (10:03)
[2024-10-30] MEDS ORDERED: Vancomycin Trough Check NOTE FOLLOW UP ONE (06:00)
[2024-10-30 06:20] LABS: ABS Monocytes 0.6 10^3/uL (0.0-0.9); ABS Nucleated RBC 0.01 10^3/ul; Hematocrit 34.3 % (35-45); Hemoglobin 11.3 g/dL (11.5-14.3); Lymphocyte % 4.8 %; Mean Corpuscular Hemoglobin 30.3 pg (27-33); Mean Corpuscular Hgb Conc 32.9 g/dL (31-36); Mean Platelet Volume 9.7 fL (7.5-11.2); Nucleated Red Blood Cells % 0.1 %/100WBC (0.0-0.8); Platelet Count 202 10^3/uL (150-450); Red Blood Count 3.73 10^6/uL (3.63-4.92); Red Cell Distribution Width 14.4 % (12-17); White Blood Count 20.5 10^3/uL (3.8-11.8)
[2024-10-30 07:04] LABS: Potassium 4.3 mmol/L (3.5-5.0)
[2024-10-30 07:05] LABS: Albumin 3.6 g/dL (3.5-5.7); Albumin/Globulin Ratio 1.2 (1-3); Calcium 8.5 mg/dL (8.6-10.3); Creatinine, Serum 0.82 mg/dL (0.51-0.95); Globulin 2.9 g/dL (2-4); Magnesium 2.3 mg/dL (1.9-2.7); Phosphorus 3.3 mg/dL (2.5-5.0); Total Bilirubin 0.4 mg/dL (0.2-1.0); Total Protein 6.5 g/dL (6.4-8.9); eGFR CKD-EPI 75.5 (>60)
[2024-10-30] MEDS: Tiotropium Brom/Olodaterol MDI (ACUTE) INH SCH (08:48)
[2024-10-30] MEDS: methylPREDNISolone SOD SUCC 40 mg/ml 1 ml VIAL IV SCH (20:42)
[2024-10-31 14:10] VITALS: BP 144/83
== END 2024-10-31 14:41 | disposition home health service (06) | DRG 208 ==
LOC: ED 20:31 → EDHOLD 22:05 → ICU 10-28 00:45 → MEDTELE 10-30 03:44
PROVIDERS: ADMIT Student in an Organized Health Care Education/Training Program; ATTEND Internal Medicine